=== PATIENT | male | born 1945 | race Caucasian/White ===

== ENCOUNTER → 2018-10-24 | Day surgery (SDC) | payer MEDICARE, OTHER ==
[2018-10-23 18:01] LABS: BASOPHILS # (AUTO) 0.1 (0.0-0.1); BASOPHILS % 1.1 % (0.0-1.0); EOSINOPHILS # (AUTO) 0.4 (0.0-0.4); EOSINOPHILS % 3.9 % (0.0-6.0); HEMATOCRIT 44.6 % (38.2-49.6); HEMOGLOBIN 15.4 g/dL (14.0-18.0); LYMPHOCYTES % 30.6 % (18.0-39.1); MEAN CORPUSCULAR HEMOGLOBIN 32.5 pg (28-32); MEAN CORPUSCULAR HGB CONC 34.5 g/dL (31-35); MEAN CORPUSCULAR VOLUME 94.1 fL (81-99); MONOCYTES # (AUTO) 0.9 (0.2-0.8); MONOCYTES % 9.3 % (4.4-11.3); NEUTROPHILS # (AUTO) 5.4 (2.1-6.9); NEUTROPHILS % 54.8 % (38.7-80.0); PLATELET COUNT 200 x10e3/uL (140-360); RED BLOOD COUNT 4.74 x10e6/uL (4.3-5.7); RED CELL DISTRIBUTION WIDTH 12.6 % (11.7-14.4)
--- NOTE | 2018-10-23 18:07 | Diagnostic Imaging Report ---
EXAMINATION: CHEST 2 VIEWS INDICATION: Preop. COMPARISON: None FINDINGS: TUBES and LINES: None. LUNGS: Lungs are well inflated. Lungs are clear. There is no evidence of pneumonia or pulmonary edema. PLEURA: No pleural effusion or pneumothorax. HEART AND MEDIASTINUM: The cardiomediastinal silhouette is unremarkable. BONES AND SOFT TISSUES: No acute osseous lesion. Mild degenerative changes of the thoracic spine. UPPER ABDOMEN: No free air under the diaphragm. IMPRESSION: No acute thoracic abnormality. Signed by: Dr. Ashlie Ryan M.D. on 10/23/2018 6:03 PM
[~2018-10-24] MED LIST: BI-FLEX; BIOTIN2500 MCG; BUPIVACAINE HCL 0.5% INJ 30 ML VIAL INJ ONE; CEFAZOLIN SOD 1 GM/D5W 50ML 50 ML IV ONE; DEXAMETHASONE SOD PHOS INJ 4 MG/ML VIAL ONE; FENTANYL CITRATE/PF 100MCG/2 ML INJ ONE; LEVOXYL125 MCG; LIDOCAINE HCL 2% LOCAL INJ 5 ML SDV VIAL INJ ONE; MUPIROCIN 2% OINT 22 GM TUBE ONE; ONDANSETRON HCL INJ 2 MG/ML VIAL ONE; PROPOFOL IV EMULSION 10 MG/ML 20 ML VIAL ONE; SEVOFLURANE INHAL SOLN 250 ML PEN BTL ONE; SILICA; TURMERIC1 GM; VITAMIN C1000 MG
--- OUTSIDE RECORDS SUMMARY | 2018-10-24 06:02 | XMS REPORT ---
Author Author [facility] Address Unknown Phone Unavailable Care Team Providers Care Full Stack Engineer Name Role Phone CHRISTELLE RUBIO Unavailable Unavailable Problems This patient has no known problems. Allergies, Adverse Reactions, Alerts This patient has no known allergies or adverse reactions. Medications This patient has no known medications. Results Test Description Test Time Test Comments Text Results Atomic Results Result Comments CHEST 2 VIEWS 2018-10-23 18:03:00 [facility] [address] [address] Patient Name: ENRIKE DALAL MR #: [id number] : 1945 Age/Sex: 73/M Req #: [id number] [facility] Physician: Ordered by: CHRISTELLE RUBIO MD Report #: [id number] Location: OR Room/Bed: Procedure: [id number] DX/CHEST 2 VIEWS Exam Date: 10/23/18 Exam Time: 1730 REPORT STATUS: Signed EXAMINATION: CHEST 2 VIEWS INDICATION: Preop. COMPARISON: None FINDINGS: TUBES and LINES: None. LUNGS: Lungs are well inflated. Lungs are clear. There is no evidence of pneumonia or pulmonary edema. PLEURA: No pleural effusion or pneumothorax. HEART AND MEDIASTINUM: The cardiomediastinal silhouette is unremarkable. BONES AND SOFT TISSUES: No acute osseous lesion. Mild degenerative changes of the thoracic spine. UPPER ABDOMEN: No free air under the diaphragm. IMPRESSION: No acute thoracic abnormality. Signed by: Dr. Ashlie Leija M.D. on 10/23/2018 6:03 PM Dictated By: NAYELI LEIJA MD, MD 02 Transcribed By: LISE on 10/23/181802 COPY TO: CHRISTELLE RUBIO MD
--- OUTSIDE RECORDS SUMMARY | 2018-10-24 06:02 | XMS REPORT | Clinical Summary ---
Author Author [facility] Organization [facility] Address Unknown Phone Unavailable Care Team Providers Care Brewery Worker Name Role Phone Perez Trejo MD PCP Allergies No Known Allergies Medications End Date Status Medication Sig Dispensed Refills Start Date Active levothyroxine (SYNTHROID, 0 LEVOXYL) 125 mcg tablet 8 Active Problems Problem Noted Date Spinal stenosis of lumbar region with neurogenic claudication 02/27/2018 Encounters Care Team Description Date Type Specialty Cale Eisenberg DO Lumbar Decompression L2 to S1-Bilateral 02/27/2018 Surgery General Surgery Keagan Galvin MD 02/27/2018 Anesthesia General Surgery Event Cale Eisenberg DO 02/27/2018 Hospital General Surgery - Encounter 02/28/2018 Rika Ruiz 02/27/2018 Telephone General Surgery Cale Eisenberg DO Preoperative testing (Primary Dx) 02/22/2018 Pre-Admit Pre-Admission Testing Testing Appointment after 10/23/2017 Family History Medical History Relation Name Comments Cancer Father Stroke Father No Known Problems Mother Relation Name Status Comments Father Mother Social History Date Tobacco Use Types Packs/Day Years Used Never Smoker Smokeless Tobacco: Never Used Alcohol Use Drinks/Week oz/Week Comments Yes 14 Standard 8.4 14 drinks per wk drinks or equivalent Sex Assigned at Date Recorded Not on file Industry Job Start Date Occupation Not on file Not on file Not on file Travel End Travel History Travel Start No recent travel history available. Last Filed Vital Signs Time Taken Vital Sign Reading 02/28/2018 9:10 AM CDT Blood Pressure 123/73 02/28/2018 9:10 AM CDT Pulse 82 02/28/2018 7:31 AM CDT Temperature 36.4 C (97.5 F) 02/28/2018 7:31 AM CDT Respiratory Rate 18 02/28/2018 9:10 AM CDT Oxygen Saturation 100% - Inhaled Oxygen - Concentration 02/27/2018 3:54 PM CDT Weight 93.4 kg (206 lb) 02/27/2018 3:54 PM CDT Height 167.6 cm (5' 6") 02/27/2018 3:54 PM CDT Body Mass Index 33.25 Plan of Treatment Health Maintenance Due Date Last Done Comments COLON CANCER SCREENING 1994 SHINGRIX VACCINE (1 of 2) 1994 ZOSTER VACCINE 2004 PNEUMOCOCCAL 2009 POLYSACCHARIDE VACCINE AGE 65 AND OVER PNEUMOCOCCAL-13 2009 INFLUENZA VACCINE 06/21/2018 Procedures Comments Procedure Name Priority Date/Time Associated Diagnosis FL < 1 HOUR Routine 02/27/2018 12:28 PM CDT MT AN ELECTIVE Routine 02/27/2018 ENDOTRACHEAL AIRWAY 10:18 AM CDT Procedure Note - Tracy Schuler, MODEL AND DYE PERSON - 02/27/2018 10:18 AM CDT Airway Date/Time: 02/27/2018 10:08 AM Performed by: TRACY SCHULER Authorized by: KEAGAN GALVIN Location: OR Urgency: Elective Difficult Airway: No Resident/C RNA/AA: TRACY SCHULER Preoxygena neal with 100% O2: Yes C-spine Precaution s Maintained Throughout : Yes Mask Ventilatio n: Easy mask Final Airway Type: Endotrache al airway Final Endotrache al Airway: ETT Cuffed: Yes Technique Used: Direct laryngosco py Insertion Site: Oral Blade Type: Rober Laryngosco pe Blade/Vide olaryngosc ope Blade Size: 3 ETT Size (mm): 7.0 Cuff at minimum occlusion pressure: Yes Measured from: Lips ETT to Lips (cm): 22 Placement Verified by: CO2 detection, direct visualizat ion and equal breath sounds Laryngosco pic view: Grade IIa - partial view of glottis Rapid Sequence Induction (RSI): No Modified RSI: No Number of Attempts at Approach: 1 ZZESTIMATED GFR Routine 02/22/2018 12:19 PM CDT TYPE AND SCREEN Routine 02/22/2018 Preoperative testing 12:19 PM CDT BASIC METABOLIC PANEL Routine 02/22/2018 Preoperative testing 12:19 PM CDT PROTHROMBIN TIME WITH INR Routine 02/22/2018 Preoperative testing 12:19 PM CDT PARTIAL THROMBOPLASTIN Routine 02/22/2018 Preoperative testing TIME (PTT) 12:19 PM CDT HC COMPLETE BLD COUNT Routine 02/22/2018 Preoperative testing W/AUTO DIFF 12:19 PM CDT ECG PRE/POST OP Routine 02/22/2018 Preoperative testing 12:10 PM CDT after 10/23/2017 Results * FL < 1 Hour (02/27/2018 12:28 PM CDT) Narrative Performed At EXAM: HENNY Intraoperative fluoroscopy. INDICATION: Spine surgery. COMPARISON: None. IMPRESSION: Two lateral radiographs demonstrating metallic instrument superimposed on posterior aspect of L4-L5 intervertebral disc. Minimal degenerative changes of the lumbar spine. Intraoperative fluoroscopic images. Radiologist was not present during the examination. Please see separate operative report for additional detail. Fluoroscopy time equals 1.7 seconds. 3 image(s). Procedure Note Interface, Radiology Results Incoming - 02/27/2018 12:39 PM CDT EXAM: Intraoperative fluoroscopy. INDICATION: Spine surgery. COMPARISON: None. IMPRESSION: Two lateral radiographs demonstrating metallic instrument superimposed on posterior aspect of L4-L5 intervertebral disc. Minimal degenerative changes of the lumbar spine. Intraoperative fluoroscopic images. Radiologist was not present during the examination. Please see separate operative report for additional detail. Fluoroscopy time equals 1.7 seconds. 3 image(s). Performing Organization Address City/State/Zipcode Phone Number [facility] [address] [place] [address] * Estimated GFR (02/22/2018 12:19 PM CDT) GFR Non Af Amer 66 mL/min/1.73 m2 [facility]IC[facility] GFR Af Amer 79 mL/min/1.73 m2 [facility] Comment: PATHOLOGY AND Chronic kidney disease: <60 GENOMIC MEDICINE mL/min/1.73m2 Kidney failure: <15 mL/min/1.73m2 The estimated GFR is calculated from the IDMS-traceable Modification of Diet in Renal Disease Equation. The accuracy of the calculation is poor when the creatinine is normal. Calculated values >90 mL/min/1.73m2 are not reported. This equation has not been validated in children (<18 years), women, the elderly (>70 years), or ethnic groups other than Caucasians and Americans. Specimen Plasma specimen Performing Organization Address City/[facility] Facility[facility] [place] [address] PATHOLOGY AND [facility] * Partial thromboplastin time, activated (02/22/2018 12:19 PM CDT) PTT 31.3 23.0 - 36.0 sec [facility] Comment: PATHOLOGY AND PTT therapeutic range for [facility] unfractionated heparin is 61.0-112.0 seconds which corresponds to Anti-Xa 0.3-0.7 U/ml. Note:Change in Panic Value The PTT Panic Value is changing from 110 sec. to 100 sec. due to new instrumentation and reagents. Correlation studies have been performed to validate this result. Specimen Blood Performing Organization Address [facility] [place] [place] Phone Number [address] * Prothrombin time with INR (02/22/2018 12:19 PM CDT) Prothrombin time 13.5 12.0 - 15.0 sec [facility] AND [employer] MEDICINE INR 1.02 0.92 - 1.12 [facility] Comment: PATHOLOGY AND For patients on anticoagulant GENOMIC MEDICINE therapy, reference ranges below: Indication: INR Value Treatment of Venous Thrombosis, 2.0-3.0 pulmonary emboli, or prophylaxis of a venous thrombosis, or systemic emboli. High dose, high risk patients 3.0-4.5 with mechanical valves. NOTE:INR values over 3.0 are sometimes associated with gastrointestinal hemorrhage, especially values over 4.0. Specimen Blood Performing Organization Address [facility] Phone Number [facility] [address] [place] [address] [employer] [facility] * CBC with platelet and differential (02/22/2018 12:19 PM CDT) WBC 6.1 4.2 - 11.0 k/uL [facility] AND [employer] MEDICINE RBC 4.38 4.04 - 5.86 m/uL [facility] AND GENOMIC MEDICINE HGB 14.1 13.0 - 17.3 g/dL [facility] AND GENOMIC MEDICINE HCT 42.1 34.0 - 45.0 % [facility] AND GENOMIC MEDICINE MCV 96.1 80.0 - 98.0 [facility] DEPARTMENT PATHOLOGY AND GENOMIC MEDICINE MCH 32.2 27.0 - 34.0 pg [facility] PATHOLOGY AND GENOMIC MEDICINE MCHC 33.5 31.5 - 36.5 g/dL [facility]OLOGY AND GENOMIC MEDICINE RDW - SD 44.8 37.0 - 51.0 [facility] DEPARTMENT OF PATHOLOGY AND GENOMIC MEDICINE MPV 8.4 7.4 - 10.4 [facility] DEPARTMENT OF PATHOLOGY AND GENOMIC MEDICINE Platelet count 238 150 - 400 k/uL [facility] AND GENOMIC MEDICINE Nucleated RBC 0.00 /100 WBC [facility] PATHOLOGY AND GENOMIC MEDICINE Neutrophils 51.9 36.0 - 66.0 % [facility] PATHOLOGY AND GENOMIC MEDICINE Lymphocytes 29.4 24.0 - 44.0 % [facility]OLOGY AND GENOMIC MEDICINE Monocytes 9.4 (H) 0.0 - 6.0 % [facility]Y AND GENOMIC MEDICINE Eosinophils 7.7 (H) 0.0 - 6.0 % [facility] PATH[facility]Y AND GENOMIC MEDICINE Basophils 1.3 (H) 0.0 - 1.2 % [facility] AND GENOMIC MEDICINE Immature granulocytes 0.3 0.0 - 1.0 % [facility] PATH[facility] AND GENOMIC MEDICINE Specimen Blood Performing Organization Address City/[facility] Phone Number [address] [address] [place] [address] PATHOLOGY AND GENOMIC MEDICINE * Type and screen (02/22/2018 12:19 PM CDT) ABO grouping A [facility] AND GENOMIC MEDICINE Rh type POS [facility] PATH[facility]Y AND GENOMIC MEDICINE Antibody screen (gel) NEG [facility] PATHOLOGY AND GENOMIC MEDICINE Specimen Blood Performing Organization Address City/[facility]/Zipcode Phone Number [address] [address] [place] [address] PATHOLOGY AND GENOMIC MEDICINE * Basic metabolic panel (02/22/2018 12:19 PM CDT) Sodium 139 135 - 150 mEq/L [facility] AND GENOMIC MEDICINE Potassium 3.8 3.5 - 5.0 mEq/L [facility]OLOGY AND GENOMIC MEDICINE Chloride 106 100 - 109 mEq/L [facility]OLOGY AND GENOMIC MEDICINE CO2 28 24 - 32 mmol/L [facility]OLOGY AND GENOMIC MEDICINE Anion gap 5 (L) 7 - 15 mEq/L [facility] Comment: PATHOLOGY AND Starting from February GENOMIC MEDICINE , anion gap calculation no longer incorporates potassium. Please note the change. BUN 13 7 - 18 mg/dL [facility]OLOGY AND GENOMIC MEDICINE Creatinine 1.1 0.8 - 1.5 mg/dL [facility]OLOGY AND GENOMIC MEDICINE Glucose 85 65 - 100 mg/dL [facility] PATHOLOGY AND GENOMIC MEDICINE Calcium 9.5 8.6 - 10.7 mg/dL [facility]OLOGY AND GENOMIC MEDICINE Specimen Plasma specimen Performing Organization Address City/State/[facility] Phone Number [facility] [address] [address] [place] [address] PATHOLOGY AND GENOMIC MEDICINE * ECG Pre/Post Op (02/22/2018 12:10 PM CDT) Ventricular rate 63 [facility] Atrial rate 63 [facility] MT interval 196 [facility] QRSD interval 102 [facility] QT interval 396 [facility] QTC interval 405 [facility] P axis 1 32 [facility] QRS axis 1 7 [facility] T wave axis 45 [facility] EKG impression Normal sinus rhythm-Low [facility] voltage QRS-Borderline ECG-In automated comparison with ECG of 24-JAN-2014 14:26,-No significant change was found- Performing Organization Address City/State/[facility] Phone Number [facility] [employer] [address] [place] [address] after 10/23/2017 Insurance Payer Benefit Subscriber ID Type Phone Address Plan / Group MEDICARE MEDICARE xxxxxxxxxx Medicare [place], [place] PART A AND B [employer] Advance Directives Patient has advance care planning documents on file. For more information, pleas e contact: Abhi Baca [address] [facility] [place] [address]
[2018-10-24 08:00] VITALS: BP 146/86
--- NOTE | 2018-10-25 08:14 | Operative Report ---
DATE OF PROCEDURE: October 24, 2018 PREOPERATIVE DIAGNOSIS: Stenosing tenosynovitis of left thumb. POSTOPERATIVE DIAGNOSIS: Stenosing tenosynovitis of left thumb. OPERATION PERFORMED: Tenovaginotomy of left thumb. ANESTHESIA: General. HISTORY: The patient is a 73-year-old left hand dominant female who presents with stenosing tenosynovitis of the left thumb that is recalcitrant to conservative treatment. The risks, benefits, and alternatives of treatment were discussed with the patient and she is prepared to undergo the procedure as outlined. DESCRIPTION OF PROCEDURE: The patient was brought to the operating theater. After the induction of adequate general/regional anesthesia, the patient was prepped and draped in a supine position. A time out was performed by the entire operating room team. An oblique incision was marked out over the A1 meggan of the left thumb. The upper extremity was exsanguinated, and a tourniquet was inflated to a pressure of 250 mmHg. The incision was made through the skin and subcutaneous tissues. All venous tributaries were controlled with bipolar cautery. The incision was deepened through the palmar tissues. The neurovascular bundles on the radial and ulnar sides of the flexor tendon sheath were identified and retracted away from the flexor tendon sheath and preserved. The A1 meggan of the affected finger was identified and incised longitudinally, taking care to protect and preserve the flexor tendons within the sheath. After the complete length of the meggan had been transected, the tendons were placed in a range of motion. There was noted to be good motion without any locking. The wound was then copiously irrigated with bacteriostatic saline and closed with 5-0 nylon in an interrupted horizontal mattress fashion. A Marcaine field block was performed at the operative site. The tourniquet was deflated. All the fingers pinked up nicely. A sterile bulky conforming bandage was applied to the hand, and the patient was returned to the recovery room in satisfactory condition and was discharged with a postoperative instruction sheet as well as a followup appointment. Job#: [id number] [place]
== END | disposition home or self-care (01) ==
LOC: OR 05:15
PROVIDERS: ATTEND Plastic Surgery
DX: M65.312 Trigger thumb, left thumb (principal); E07.89 Other specified disorders of thyroid; Z01.810 Encounter for preprocedural cardiovascular examination; Z01.818 Encounter for other preprocedural examination
CPT/HCPCS: 26055; 36415; 71046; 85025; 93005; J0690; J1100; J2001; J2405; J2704

== ENCOUNTER → 2019-01-04 | Day surgery (SDC) | payer MEDICARE, OTHER ==
[2018-12-27 12:09] LABS: BASOPHILS # (AUTO) 0.1 (0.0-0.1); EOSINOPHILS # (AUTO) 0.5 (0.0-0.4); EOSINOPHILS % 6.5 % (0.0-6.0); HEMATOCRIT 41.6 % (38.2-49.6); LYMPHOCYTES % 28.3 % (18.0-39.1); MEAN CORPUSCULAR HEMOGLOBIN 32.2 pg (28-32); MEAN CORPUSCULAR HGB CONC 33.7 g/dL (31-35); MEAN CORPUSCULAR VOLUME 95.6 fL (81-99); MONOCYTES # (AUTO) 0.8 (0.2-0.8); MONOCYTES % 11.8 % (4.4-11.3); NEUTROPHILS # (AUTO) 3.6 (2.1-6.9); NEUTROPHILS % 52.1 % (38.7-80.0); PLATELET COUNT 177 x10e3/uL (140-360); RED BLOOD COUNT 4.35 x10e6/uL (4.3-5.7); RED CELL DISTRIBUTION WIDTH 12.8 % (11.7-14.4)
[2018-12-27 12:21] LABS: ANION GAP 13.4 mmol/L (8-16); BLOOD UREA NITROGEN 16 mg/dL (7-26); BUN/CREATININE RATIO 15 (6-25); CALCIUM 9.5 mg/dL (8.4-10.2); CARBON DIOXIDE 26 mmol/L (22-29); CHLORIDE 103 mmol/L (98-107); CREATININE, SERUM 1.04 mg/dL (0.72-1.25); EST GLOMERULAR FILTRATION RATE > 60 ML/MIN (60-); GLUCOSE 87 mg/dL (74-118); POTASSIUM 4.4 mmol/L (3.5-5.1); SODIUM 138 mmol/L (136-145)
[~2019-01-04] MED LIST changes: +BUPIVACAINE 0.25% 30ML SDV INJ ONE; -BUPIVACAINE HCL 0.5% INJ 30 ML VIAL INJ ONE; -CEFAZOLIN SOD 1 GM/D5W 50ML 50 ML IV ONE; +CEFAZOLIN SOD 1 GM/NS 50ML 50 ML IV ONE; +HYDROXYZINE HCL25 MG PO; -ONDANSETRON HCL INJ 2 MG/ML VIAL ONE; +ONDANSETRON HCL INJ 2MG/ML 2ML 2 MG/ML VIAL ONE
--- OUTSIDE RECORDS SUMMARY | 2019-01-04 06:14 | XMS REPORT | Clinical Summary ---
Author Author [facility] Address Unknown Phone Unavailable Care Team Providers Care Pets And Pet Supplies Salesperson Name Role Phone Perez Trejo MD PCP Allergies No Known Allergies Medications End Date Status Medication Sig Dispensed Refills Start Date Active levothyroxine (SYNTHROID, 0 LEVOXYL) 125 mcg tablet 8 Active Problems Problem Noted Date Spinal stenosis of lumbar region with neurogenic claudication 02/27/2018 Encounters Care Team Description Date Type Specialty Cale Eisenberg DO Lumbar Decompression L2 to S1-Bilateral 02/27/2018 Surgery General Surgery Ankur Galvin MD 02/27/2018 Anesthesia General Surgery Event Cale Eisenberg DO 02/27/2018 Hospital General Surgery - Encounter 02/28/2018 Rika Ruiz 02/27/2018 Telephone General Surgery Cale Eisenberg DO Preoperative testing (Primary Dx) 02/22/2018 Pre-Admit Pre-Admission Testing Testing Appointment after 01/03/2018 Family History Medical History Relation Name Comments [...] Last Done Comments COLON CANCER SCREENING 1994 SHINGLES VACCINES (1 of 1994 2) PNEUMOCOCCAL 2009 POLYSACCHARIDE VACCINE AGE 65 AND OVER PNEUMOCOCCAL-13 2009 INFLUENZA VACCINE 06/21/2018 Procedures Comments Procedure Name Priority Date/Time Associated Diagnosis FL < 1 HOUR Routine 02/27/2018 12:28 PM CDT ID AN ELECTIVE Routine 02/27/2018 ENDOTRACHEAL AIRWAY 10:18 AM CDT Procedure Note - Tracy Schuler, GRAB OPERATOR - 02/27/2018 10:18 AM CDT Airway Date/Time: 02/27/2018 10:08 AM Performed by: TRACY SCHULER Authorized by: ANKUR GALVIN Location: OR Urgency: Elective Difficult Airway: [...] 02/22/2018 Preoperative testing 12:10 PM CDT after 01/03/2018 Results * FL < 1 Hour (02/27/2018 [...] equals 1.7 seconds. 3 image(s). Procedure Note [facility], Radiology Results Incoming - 02/27/2018 12:39 PM [...] image(s). Performing Organization Address City/State/Zipcode Phone Number [facility] [address] [place] [address] * Estimated GFR (02/22/2018 12:19 PM CDT) GFR Non Af Amer 66 mL/min/1.73 m2 [facility] DEPARTMENT OF PATHOLOGY AND GENOMIC MEDICINE GFR Af Amer 79 mL/min/1.73 m2 [facility] DEPARTMENT OF Comment: PATHOLOGY AND Chronic kidney [...] Americans. Specimen Plasma specimen Performing Organization Address [facility] Phone Number [facility] [address] [place] [address]. [place] [address] PATHOLOGY AND [employer] * Partial thromboplastin time, activated (02/22/2018 12:19 PM CDT) PTT 31.3 23.0 - 36.0 sec [facility] DEPARTMENT OF Comment: PATHOLOGY AND PTT therapeutic range for GENOMIC MEDICINE unfractionated heparin is 61.0-112.0 seconds which corresponds to Anti-Xa 0.3-0.7 U/ml. Note:Change in Panic Value The PTT Panic Value is changing from 110 sec. to 100 sec. due to new instrumentation and reagents. Correlation studies have been performed to validate this result. Specimen Blood Performing Organization Address [facility] [place] [address] PATHOLOGY [facility] * Prothrombin time with INR (02/22/2018 12:19 PM CDT) Prothrombin time 13.5 12.0 - 15.0 sec [facility] DEPARTMENT OF PATHOLOGY AND [facility] MEDICINE INR 1.02 0.92 - 1.12 [facility] DEPARTMENT OF Comment: PATHOLOGY AND For patients on anticoagulant GENOMIC MEDICINE therapy, reference ranges below: Indication: INR Value Treatment of Venous Thrombosis, 2.0-3.0 pulmonary emboli, or prophylaxis of a venous thrombosis, or systemic emboli. High dose, high risk patients 3.0-4.5 with mechanical valves. NOTE:INR values over 3.0 are sometimes associated with gastrointestinal hemorrhage, especially values over 4.0. Specimen Blood Performing Organization Address [facility] Phone Number [address] [place] [address] PATHOLOGY AND [facility] * CBC with platelet and differential (02/22/2018 12:19 PM CDT) WBC 6.1 4.2 - 11.0 k/uL [facility] DEPARTMENT OF PATHOLOGY AND [facility] MEDICINE RBC 4.38 4.04 - 5.86 m/uL [facility] DEPARTMENT OF PATHOLOGY AND GENOMIC MEDICINE HGB 14.1 13.0 - 17.3 g/dL [facility] DEPARTMENT OF PATHOLOGY AND GENOMIC MEDICINE HCT 42.1 34.0 - 45.0 % [facility] DEPARTMENT OF PATHOLOGY AND GENOMIC MEDICINE MCV 96.1 80.0 - 98.0 fL [facility] DEPARTMENT OF PATHOLOGY AND GENOMIC MEDICINE MCH 32.2 27.0 - 34.0 pg [facility] DEPARTMENT OF PATHOLOGY AND GENOMIC MEDICINE MCHC 33.5 31.5 - 36.5 g/dL [facility] DEPARTMENT OF PATHOLOGY AND GENOMIC MEDICINE RDW - SD 44.8 37.0 - 51.0 fL [facility] DEPARTMENT OF PATHOLOGY AND GENOMIC MEDICINE MPV 8.4 7.4 - 10.4 fL [facility] DEPARTMENT OF PATHOLOGY AND GENOMIC MEDICINE Platelet count 238 150 - 400 k/uL [facility] DEPARTMENT OF PATHOLOGY AND GENOMIC MEDICINE Nucleated RBC 0.00 /100 WBC [facility] DEPARTMENT OF PATHOLOGY AND GENOMIC MEDICINE Neutrophils 51.9 36.0 - 66.0 % [facility] DEPARTMENT OF PATHOLOGY AND GENOMIC MEDICINE Lymphocytes 29.4 24.0 - 44.0 % [facility] DEPARTMENT OF PATHOLOGY AND GENOMIC MEDICINE Monocytes 9.4 (H) 0.0 - 6.0 % [facility] DEPARTMENT OF PATHOLOGY AND GENOMIC MEDICINE Eosinophils 7.7 (H) 0.0 - 6.0 % [facility] DEPARTMENT OF PATHOLOGY AND GENOMIC MEDICINE Basophils 1.3 (H) 0.0 - 1.2 % [facility] DEPARTMENT OF PATHOLOGY AND GENOMIC MEDICINE Immature granulocytes 0.3 0.0 - 1.0 % [facility] DEPARTMENT OF PATHOLOGY AND GENOMIC MEDICINE Specimen Blood Performing Organization Address City/[facility]/[place] [address] PATHOLOGY AND GENOMIC MEDICINE * Type and screen (02/22/2018 12:19 PM CDT) ABO grouping A [facility] DEPARTMENT OF PATHOLOGY AND GENOMIC MEDICINE Rh type POS [facility] DEPARTMENT OF PATHOLOGY AND GENOMIC MEDICINE Antibody screen (gel) NEG [facility] DE[facility]MENT PATHOLOGY AND GENOMIC MEDICINE Specimen Blood Performing Organization Address City/[facility] [place] [address] PATHOLOGY AND GENOMIC MEDICINE * Basic metabolic panel (02/22/2018 12:19 PM CDT) Sodium 139 135 - 150 mEq/L [facility] DEPARTMENT PATHOLOGY AND GENOMIC MEDICINE Potassium 3.8 3.5 - 5.0 mEq/L [facility] DEPARTMENT OF PATHOLOGY AND GENOMIC MEDICINE Chloride 106 100 - 109 mEq/L [facility] DEPARTMENT OF PATHOLOGY AND GENOMIC MEDICINE CO2 28 24 - 32 mmol/L [facility] DEPARTMENT OF PATHOLOGY AND GENOMIC MEDICINE Anion gap 5 (L) 7 - 15 mEq/L [facility] DEPARTMENT OF Comment: PATHOLOGY AND Starting from February [facility] MEDICINE , anion gap calculation no longer incorporates potassium. Please note the change. BUN 13 7 - 18 mg/dL [facility] DEPARTMENT OF PATHOLOGY AND GENOMIC MEDICINE Creatinine 1.1 0.8 - 1.5 mg/dL [facility] DEPARTMENT OF PATHOLOGY AND GENOMIC MEDICINE Glucose 85 65 - 100 mg/dL [facility] DEPARTMENT OF PATHOLOGY AND GENOMIC MEDICINE Calcium 9.5 8.6 - 10.7 mg/dL [facility] DEPARTMENT OF PATHOLOGY AND GENOMIC MEDICINE Specimen Plasma specimen Performing Organization Address City/[facility] Phone Number [facility]PARTMENT [place] [address] [place] [address] PATHOLOGY AND GENOMIC MEDICINE * ECG Pre/Post Op (02/22/2018 12:10 PM CDT) Ventricular rate 63 [facility] Atrial rate 63 [facility] ID interval 196 [facility] QRSD interval 102 [facility] QT interval 396 [facility] QTC interval 405 [facility] P axis 1 32 [facility] QRS axis 1 7 [facility] T wave axis 45 [facility] EKG impression Normal sinus rhythm-Low [facility] voltage QRS-Borderline ECG-In automated comparison with ECG of 24-JAN-2014 14:26,-No significant change was found- Performing Organization Address City/[facility] Phone Number [facility] [employer] [address] [place] [address] after 01/03/2018 Insurance Payer Benefit Subscriber ID Type Phone Address Plan / Group MEDICARE MEDICARE xxxxxxxxxx Medicare [place], [place] PART A AND B [employer] x[employer] Advance Directives Patient has advance care planning documents on file. For more information, pleas e contact: Abhi Baca [address] [place] [phone]
[2019-01-04 09:45] VITALS: BP 148/88
--- NOTE | 2019-01-04 10:48 | Operative Report ---
DATE OF PROCEDURE: January 04, 2019 PREOPERATIVE DIAGNOSIS: Recurrent ganglion cyst, left wrist dorsum. POSTOPERATIVE DIAGNOSIS: Extensor tenosynovitis. PROCEDURE: Radical excision of extensor tenosynovium, left index finger. ANESTHESIA: General. HISTORY: The patient is a 73-year-old, [id number] male who states that he underwent excision of a "ganglion cyst" on the dorsal aspect of the left wrist approximately 1-1/2 years ago. He states that within a very short period of time the cyst recurred. He states that the surgeon who performed the surgery did several corticosteroid injections; however, the recurrent mass persisted and he was told that nothing further could be done. The patient presented to me and the risks, benefits and alternatives to treatment were discussed with the patient and the family. He is prepared to undergo the procedure as outlined. DETAILS OF PROCEDURE: Patient was marked preoperatively in the holding area. Note was made of a longitudinal incision to the radial aspect of the mass on the dorsal aspect of the wrist. He was taken to the operating theater. After the induction of adequate general anesthesia, he was prepped and draped in a supine position, and a time out was performed. The previous surgical incision was marked out. The left upper extremity was exsanguinated, and a tourniquet was inflated to a pressure of 250 mmHg. The incision was made through the skin and subcutaneous tissues. Bleeding was controlled using the bipolar cautery. In order to enter the area of previous surgery and identify structures adequately, the dissection continued proximal and distal to the area of previous surgery. The extensor tendons were identified as was the extensor retinaculum proximally. Using this as a guide, the skin and subcutaneous tissues were then elevated sharply off of a very dense, fibrotic, adherent mass occupying the extensor indicis proprius tendon as well as the tendons of the 4th dorsal compartment. Once the skin and subcutaneous tissues had been elevated off of the tendinous structures, it was seen that there was a large fluid-filled sac which was densely adherent to the extensor indicis proprius tendon. Using careful dissection, this sac and proliferative extensor tenosynovium were dissected off of the EIP tendon. In the mid portion of the tendon, several permanent sutures were encountered and appeared to be placed there for purposes of an extensor tenorrhaphy. These were removed as the tendinous substance appeared to be well healed, and the sutures were apparently possibly the etiology of this proliferative extensor tenosynovium. After excision of all of the dense attachments, the extensor tendon was noted to be intact and with good substance in the area where the adherence was noted. The tenosynovium as well as the sac and the permanent sutures were then sent for permanent pathologic examination. No evidence of ganglion cyst was found, and the wound was copiously irrigated with bacteriostatic saline and closed with 5-0 nylon in interrupted horizontal mattress fashion. A Marcaine field block was performed at the operative site. The tourniquet was deflated. All the fingers pinked up nicely, and a sterile bulking conforming bandage was applied. The patient tolerated the procedure well and was brought to the recovery room in satisfactory condition and discharged with a postoperative instruction sheet as well as a followup appointment. Job#: [id number]
== END | disposition home or self-care (01) ==
LOC: OR 06:12
PROVIDERS: ATTEND Plastic Surgery
DX: M65.842 Other synovitis and tenosynovitis, left hand (principal); E03.9 Hypothyroidism, unspecified; Z01.812 Encounter for preprocedural laboratory examination
CPT/HCPCS: 25116; 36415; 80048; 85025; 88304; 88305; J0690; J1100; J2001; J2405; J2704

== ENCOUNTER → 2020-01-16 | Day surgery (SDC) | payer MEDICARE, OTHER ==
[2020-01-14 09:31] LABS: BASOPHILS # (AUTO) 0.1 (0.0-0.1); BASOPHILS % 1.2 % (0.0-1.0); EOSINOPHILS # (AUTO) 0.4 (0.0-0.4); HEMATOCRIT 43.6 % (38.2-49.6); HEMOGLOBIN 15.1 g/dL (14.0-18.0); LYMPHOCYTES # (AUTO) 1.9 (1.0-3.2); LYMPHOCYTES % 24.8 % (18.0-39.1); MEAN CORPUSCULAR HEMOGLOBIN 32.7 pg (28-32); MEAN CORPUSCULAR HGB CONC 34.6 g/dL (31-35); MEAN CORPUSCULAR VOLUME 94.4 fL (81-99); MONOCYTES # (AUTO) 0.7 (0.2-0.8); MONOCYTES % 8.4 % (4.4-11.3); NEUTROPHILS # (AUTO) 4.7 (2.1-6.9); NEUTROPHILS % 60.5 % (38.7-80.0); PLATELET COUNT 189 x10e3/uL (140-360); RED BLOOD COUNT 4.62 x10e6/uL (4.3-5.7); RED CELL DISTRIBUTION WIDTH 12.3 % (11.7-14.4)
[2020-01-14 09:47] LABS: BLOOD UREA NITROGEN 10 mg/dL (7-26); BUN/CREATININE RATIO 10 (6-25); CALCIUM 9.3 mg/dL (8.4-10.2); CARBON DIOXIDE 27 mmol/L (22-29); CHLORIDE 106 mmol/L (98-107); CREATININE, SERUM 1.03 mg/dL (0.72-1.25); EST GLOMERULAR FILTRATION RATE > 60 ML/MIN (60-); GLUCOSE 101 mg/dL (74-118); SODIUM 140 mmol/L (136-145)
--- NOTE | 2020-01-14 10:07 | Diagnostic Imaging Report ---
EXAMINATION: CHEST 2 VIEWS INDICATION: Pre-operative COMPARISON: None FINDINGS: LINES/TUBES:None LUNGS:The lungs are well-inflated. No focal consolidation or pulmonary edema. PLEURA:No pleural effusion or pneumothorax. MEDIASTINUM:The cardiomediastinal silhouette appears normal in size and shape. BONES/SOFT TISSUES:No acute osseous injury. ABDOMEN:No free air under the diaphragm. IMPRESSION: No focal pneumonia or pulmonary edema. Signed by: Ale Anthony MD on 01/14/2020 10:04 AM
[~2020-01-16] MED LIST changes: +ACETAMINOPHEN 1000 MG/100 ML IV ONE; -BIOTIN2500 MCG; +BIOTIN2500 MCG PO; +BUPIVACAINE HCL 0.5% INJ 30 ML VIAL INJ ONE; -CEFAZOLIN SOD 1 GM/NS 50ML 50 ML IV ONE; +HYDROCHLOROTHIA25 MG PO; +KETOROLAC TROMETHAMINE 30 MG/ML VIAL ONE; -LEVOXYL125 MCG; +LEVOXYL125 MCG PO; +LIDOCAINE HCL 1% LOCAL INJ 20 ML VIAL ONE; -MUPIROCIN 2% OINT 22 GM TUBE ONE; +PANTOPRAZOLE SO40 MG PO; -SILICA; +SILICA PO; -VITAMIN C1000 MG; +VITAMIN C1000 MG PO
--- OUTSIDE RECORDS SUMMARY | 2020-01-16 06:11 | XMS REPORT ---
Author Author [facility] Address Unknown Phone Unavailable Care Team Providers Care Picker Box Operator Name Role Phone Jonah MICHAUD Unavailable Unavailable CHRISTELLE RUBIO Unavailable Unavailable Problems This patient has no known problems. Allergies, Adverse Reactions, Alerts This patient has no known allergies or adverse reactions. Medications This patient has no known medications. Results Test Description Test Time Test Comments Text Results Atomic Results Result Comments CHEST 2 VIEWS 2020-01-14 10:04:00 [facility] [address] [address] Patient Name: ENRIKE DALAL MR #: [id number] : 1945 Age/Sex: 74/M Req #: [id number] Adm Physician: Ordered by: ANTOINE MICHAUD MD Report #: [id number] Location: OR Room/Bed: Procedure: [id number] DX/CHEST 2 VIEWS Exam Date: 01/14/20 Exam Time: 0920 REPORT STATUS: Signed EXAMINATION: CHEST 2 VIEWS INDICATION: Pre-operative COMPARISON: None FINDINGS: LINES/TUBES:None LUNGS:The lungs are well-inflated. No focal consolidation or pulmonary edema. PLEURA:No pleural effusion or pneumothorax. MEDIASTINUM:The cardiomediastinal silhouette appears normal in size and shape. BONES/SOFT TISSUES:No acute osseous injury. ABDOMEN:No free air under the diaphragm. IMPRESSION: No focal pneumonia or pulmonary edema. Signed by: Shagufta Perry MD on 01/14/2020 10:04 AM Dictated By: SHAGUFTA PERRY MD 03 Transcribed By: LISE on 01/14/201003 COPY TO: ANTOINE MICHAUD MD CHEST 2 VIEWS 2018-10-23 18:03:00 [place] [address] Patient Name: ENRIKE DALAL MR #: [id number] : 1945 Age/Sex: 73/M Req #: [id number] Adm Physician: Ordered by: CHRISTELLE RUBIO MD Report #: [id number] Location: OR Room/Bed: Procedure: [id number] DX/CHEST 2 VIEWS Exam Date: 10/23/18 Exam [...]
[2020-01-16 11:10] VITALS: BP 153/86
--- NOTE | 2020-01-16 11:17 | Operative Report ---
DATE OF PROCEDURE: 01/16/2020 SURGEON: Sharan Rowe MD PREOPERATIVE DIAGNOSIS: Right inguinal hernia. POSTOPERATIVE DIAGNOSIS: Right inguinal hernia. OPERATION PERFORMED: Repair of right inguinal hernia with extended Prolene Hernia System. CHOIR SINGER: ANA MARIA Buck. ANESTHESIA: General. COMPLICATIONS: None. ESTIMATED BLOOD LOSS: Minimal. DESCRIPTION OF PROCEDURE: With the patient lying in bed in the supine position under good general anesthesia, the abdomen was prepped with Betadine solution and draped in the usual manner. A right inguinal incision was made. It was carried down through the subcutaneous tissue down to the external oblique aponeurosis. The external oblique was then opened along the length of its fibers and the external inguinal ring was opened. The cord was then mobilized and retracted. Contained within the cord was an indirect hernia sac, which was from the cord structures and then ligated with 2-0 silk suture ligature. The excess was resected. Contained within the cord was also a large lipoma of the cord, which was from the cord structures, ligated with 2-0 Vicryl and divided. After this was done, the preperitoneal space was entered right through the internal ring and a pocket was created without any difficulty. An extended Prolene Hernia System was placed in the preperitoneal space and the underlay patch was deployed without any problems. The overlay patch was then placed over the floor and split inferolaterally to allow for passage of the cord. The mesh was then sutured to the conjoined tendon and the inguinal ligament using interrupted sutures of 2-0 Vicryl. The whole area was then thoroughly irrigated. Perfect hemostasis was ascertained. All layers were infiltrated on the way out with solution of 0.25% Marcaine and 1% lidocaine. The external oblique aponeurosis was closed with a running suture of 2-0 Vicryl. The subcutaneous tissue was approximated with 3-0 plain and the skin was closed with clips. A dressing was applied. The sponge, lap, and needle count was correct. The patient tolerated the procedure well and returned to the recovery room in stable condition. Sharan Rowe MD JLR/MODL /[id number]
== END | disposition home or self-care (01) ==
LOC: OR 06:07
PROVIDERS: ATTEND Surgery
DX: K40.90 Unilateral inguinal hernia, without obstruction or gangrene, not specified as recurrent (principal); D17.6 Benign lipomatous neoplasm of spermatic cord; I10 Essential (primary) hypertension; K21.9 Gastro-esophageal reflux disease without esophagitis; Z01.810 Encounter for preprocedural cardiovascular examination; Z01.812 Encounter for preprocedural laboratory examination; Z01.818 Encounter for other preprocedural examination
CPT/HCPCS: 36415; 49505; 71046; 80048; 85025; 93005; C1781; J0131; J1100; J1885; J2001 ×2; J2405; J2704; J3010